=== PATIENT | male | born 1940 | race Caucasian/White ===

== ENCOUNTER 2019-12-16 09:01 | Inpatient (IN) | payer OTHER ==
[~2019-12-16] VITALS: Ht 175.3 cm; Wt 77.1 kg
[2019-12-16 09:05] VITALS: BP 112/94
[2019-12-16 09:23] LABS: ABSOLUTE LYMPHOCYTES 0.3 thou/uL (0.8-5.3); ABSOLUTE MONOCYTES 0.4 thou/uL (0.0-1.2); ABSOLUTE NEUTROPHILS 3.5 thou/uL (1.6-8.1); BASOPHILS 0.4 %; EOSINOPHILS 0.1 %; HEMATOCRIT 33.2 % (42.0-52.0); LYMPHOCYTES 7.7 %; MCH 28.2 pg (26.0-34.0); MCHC 33.2 g/dL (28.0-37.0); MCV 84.8 fL (80.0-100.0); MONOCYTES 9.2 %; MPV 7.9 fl. (7.2-11.1); NUCLEATED RBCS 0 /100WBC; PLATELET COUNT* 170 thou/uL (150-400); POLYS 82.6 %; RBC 3.92 mil/uL (4.50-6.00); RDW-CV 15.3 % (10.5-14.5); WBC 4.3 thou/uL (4.0-11.0)
[2019-12-16] MEDS ORDERED: FAMOTIDINE 20 M20 MG PO (09:34)
[2019-12-16] MEDS ORDERED: DILTIAZEM ER240 MG PO (09:34)
[2019-12-16 09:35] LABS: CREATININE 2.6 mg/dL (0.6-1.3); POTASSIUM 3.9 mmol/L (3.5-5.1)
[2019-12-16] MEDS ORDERED: MILK OF MA400 MG/5 M PO (09:35)
[2019-12-16] MEDS ORDERED: JANUVIA100 MG PO (09:35)
[2019-12-16] MEDS ORDERED: ROSUVASTATIN CA20 MG PO (09:35)
[2019-12-16] MEDS ORDERED: TOPROL XL50 MG PO (09:35)
[2019-12-16] MEDS ORDERED: FLOMAX0.4 MG PO (09:35)
[2019-12-16] MEDS ORDERED: XARELTO15 MG PO (09:36)
[2019-12-16] MEDS ORDERED: TYLENOL325 MG PO (09:36)
[2019-12-16] MEDS ORDERED: TRAMADOL 50 MG50 MG PO (09:36)
[2019-12-16 09:48] LABS: ALBUMIN 2.9 g/dL (3.4-5.0); CK-MB MASS 1.1 ng/mL (<0.5-3.6); TOTAL BILIRUBIN 0.6 mg/dL (<0.1-1.0); TOTAL PROTEIN 7.2 g/dL (6.4-8.2)
[2019-12-16 10:02] LABS: URINE BILIRUBIN NEGATIVE (Negative); URINE BLOOD 2+ (Negative); URINE CLARITY CLEAR; URINE COLOR YELLOW; URINE GLUCOSE-RANDOM NEGATIVE (Negative); URINE KETONES TRACE (Negative); URINE LEUKOCYTES-REFLEX NEGATIVE (Negative); URINE NITRITE-REFLEX NEGATIVE (Negative); URINE PROTEIN 1+ (Negative); URINE SPECIFIC GRAVITY 1.025 (1.005-1.030); URINE UROBILINOGEN 0.2 E.U./dl (0.2-1.0)
[2019-12-16 10:23] LABS: BACTERIA-REFLEX 1-9 Few /HPF (None Seen); CRYSTALS None Seen /LPF (None Seen); FINE GRANULAR CASTS 0-3 Few /LPF (None Seen); MUCUS 0-3 Light strn/LPF (None Seen); SQUAMOUS 0-3 Few /LPF (0-3); URINE RBC 3-10 Few /HPF (0-2); URINE WBC-REFLEX 0-5 Rare /HPF (0-5)
[2019-12-16 10:55] LABS: APTT 27.4 Seconds (25.0-31.3); INR 1.2; PROTIME 12.3 Seconds (9.20-11.50)
[2019-12-16 14:30] VITALS: BP 140/56
[2019-12-16 14:49] VITALS: BP 144/50
[2019-12-16 16:40] VITALS: BP 150/77
[2019-12-16 20:00] VITALS: BP 142/98
[2019-12-16 23:59] VITALS: BP 143/83
[2019-12-17 04:00] VITALS: BP 142/80
[2019-12-17 07:30] VITALS: BP 127/71
[2019-12-17 09:48] LABS: HEMATOCRIT 32.7 % (42.0-52.0); HEMOGLOBIN 10.5 gm/dL (14.0-18.0); MCHC 32.2 g/dL (28.0-37.0); MCV 86.8 fL (80.0-100.0); MPV 8.5 fl. (7.2-11.1); RBC 3.76 mil/uL (4.50-6.00); RDW-CV 16.1 % (10.5-14.5); WBC 2.4 thou/uL (4.0-11.0)
[2019-12-17 10:00] LABS: CALCIUM 8.2 mg/dL (8.5-10.1); CREATININE 2.1 mg/dL (0.6-1.3); POTASSIUM 4.2 mmol/L (3.5-5.1)
--- NOTE | 2019-12-17 10:56 | EKG ---
[place] [address] ELECTROCARDIOGRAM REPORT Name: CORTESDASHA Yaa Room: [address] ADM IN [facility].#: [id number] Admission: 12/16/19 Attend Phys: Noe Bull Discharge: Date of : 38 Date of Service: 12/16/19908 Report #: [id number] THIS REPORT FOR: //name// [facility] ED Test Date: 2019-12-16 Test Time: 09:09:45 Pat Name: DASHA CORTES Department: Room: [facility] Gender: M Assistant Property Manager: CCD : 1940 Requested By: Ranjit Rosario Order Number: [id number] MD: Jesse Wade Measurements Intervals [place] Rate: 124 P: [place]: QRS: 55 QRSD: 139 T: -68 QT: 341 QTc: 490 Interpretive Statements Atrial fibrillation Right bundle branch block Inferior infarct, age indeterminate Repol abnrm suggests ischemia, diffuse leads No previous ECG available for comparison Electronically Signed On 12-17-2019 10:56:28 ICU MANAGER by Jesse Wade [email or web address] <ELECTRONICALLY SIGNED> By: Jesse Wade MD, [facility] 12/17/19 1056 0909 Jesse Wade MD, [facility] /EPI
[2019-12-17 13:30] VITALS: BP 121/67
--- NOTE | 2019-12-17 15:41 | 2DMMODE ---
[place] [address] 2 D/M-MODE ECHOCARDIOGRAM Name: DASHA CORTES Room: [address] IN .R.#: [id number] Admission: 12/16/19 Attend Phys: Noe Bull Discharge: Date of : 38 Date of Service: 12/17/19 1541 Report #: [id number] THIS REPORT FOR: cc: Reilly Edwards MD, Srinath MD Blick,Jesse Ibarra MD [facility] ~ APPROVED REPORT Study performed: 12/17/2019 14:24:32 EXAM: Comprehensive 2D, Doppler, and color-flow Echocardiogram Patient Location: Bedside BSA: 1.93 HR: 113 bpm BP: 127/71 mmHg Other Information Study Quality: Technically Limited Technically limited study due to uncooperative patient, inability to position patient. Indications Atrial Fibrillation Pacemaker Covid Positive 2D Dimensions IVSd: 18.00 (7-11mm) LVOT Diam: 19.97 (18-24mm) LVDd: 38.14 mm PWd: 7.35 (7-11mm) Ascending Ao: 37.18 (22-36mm) LVDs: 30.47 (25-40mm) Aortic Root: 31.37 mm Volumes Left Atrial Volume (Systole) LA ESV Index: 42.10 mL/m2 Aortic Valve AoV Peak Riley.: 1.52 m/s AO Peak Gr.: 9.29 mmHg LVOT Max P.70 mmHg AO Mean Gr.: 5.63 mmHg LVOT Mean P.07 mmHg LVOT Max V: 0.82 m/s AO V2 VTI: 28.80 cm LVOT Mean V: 0.46 m/[place] [address] 2 D/M-MODE ECHOCARDIOGRAM Name: DASHA CORTES Room: [address] IN .R.#: [id number] Admission: 12/16/19 Attend Phys: Noe Bull Discharge: Date of : 38 Date of Service: 12/17/19 1541 Report #: [id number] KEN (VTI): 1.99 cm2 LVOT V1 VTI: 18.30 cm Mitral Valve E/A Ratio: 3.30 MV Decel. Time: 178.19 ms MV E Max Riley.: 0.75 m/s MV PHT: 51.67 ms MVA (PHT): 4.26 cm2 Pulmonary Valve PV Peak Riley.: 0.78 m/s PV Peak Gr.: 2.40 mmHg Tricuspid Valve RAP Estimate: 5.00 mmHg TR Peak Gr.: 23.43 mmHg RVSP: 28.43 mmHg PA Pressure: 28.43 mmHg Left Ventricle The left ventricle is normal size. There is normal LV segmental wall motion. There is normal left ventricular wall thickness. Left ventricular systolic function is normal. The left ventricular ejection fraction is within the normal range. LVEF is 50-55%. Right Ventricle Right ventricle is dilated. Right ventricle is mildly hypokinetic. Pacemaker lead is present in the right ventricle. Atria Left atrium is mildly dilated. Interatrial septum not well visualized. Right atrium is dilated. Aortic Valve The Aortic valve is sclerotic. Trace aortic regurgitation. There is no aortic valvular stenosis. Mitral Valve The mitral valve is normal in structure. Mild mitral regurgitation. No evidence of mitral valve stenosis. Tricuspid Valve The tricuspid valve is normal in structure. Severe tricuspid regurgitation. estimated pa pressure 30 mm Hg Pulmonic Valve Pulmonic valve is not well visualized. There is no pulmonic [place] [address] 2 D/M-MODE ECHOCARDIOGRAM Name: DASHA CORTES Room: [address] IN [facility]#: [id number] Admission: 12/16/19 Attend Phys: Noe Bull Discharge: Date of : 38 Date of Service: 12/17/19 1541 Report #: [id number] Great Vessels The aortic root is normal in size. Aortic arch is notl visualized. IVC is not visualized. Pericardium There is no pericardial effusion. <Conclusion> LVEF is 50-55%. Right ventricle is dilated. Left atrium is mildly dilated. Right atrium is dilated. The Aortic valve is sclerotic. Mild mitral regurgitation. Severe tricuspid regurgitation. estimated pa pressure 30 mm Hg <ELECTRONICALLY SIGNED> By: Jesse Wade MD, FACC 12/17/19 1541 1541 1541 Jesse Wade MD, FACC /INF
--- NOTE | 2019-12-17 17:20 | EKG ---
[place] [address] ELECTROCARDIOGRAM REPORT Name: SOPHIADASHA Yaa Room: [address] ADM [place] .R.#: [id number] Admission: 12/16/19 Attend Phys: Noe Bull Discharge: Date of : 38 Date of Service: 12/16/192140 Report #: [id number] THIS REPORT FOR: //name// [facility] Test Date: 2019-12-16 Test Time: 21:41:23 Pat Name: DASHA CORTES Department: Room: [address] Gender: M Nurse Instructor: BXIONG : 1940 Requested By: Noe Bull Order Number: [id number] Gail MD: Jesse Wade Measurements Intervals [place] Rate: 126 P: [place]: QRS: 73 QRSD: 129 T: -54 QT: 344 QTc: 499 Interpretive Statements Atrial fibrillation Ventricular premature complex Right bundle branch block Repol abnrm suggests ischemia, diffuse leads Compared to ECG 12/16/2019 09:09:45 Ventricular premature complex(es) now present Possible ischemia still present Electronically Signed On 12-17-2019 17:20:16 SENIOR NET DEVELOPER ARCHITECT by Jesse Wade [email or web address] <ELECTRONICALLY SIGNED> By: Jsese Wade MD, FACC 12/17/19 1720 40 40 Jesse Wade MD, FAC /EPI
--- NOTE | 2019-12-17 17:28 | CON ---
[address] [address] CONSULTATION Name: DASHA CORTES Room: [address] IN M.R.#: [id number] Admission: 12/16/19 Attend Phys: Raeann Cota Discharge: Date of : 38 Report #: [id number] THIS REPORT FOR: //name// cc: Reilly Edwards MD, Srinath MD ~ DATE OF SERVICE: 12/17/2019 CARDIOLOGY CONSULTATION HISTORY OF PRESENT ILLNESS: The patient is an 79-year-old white male who I was asked to see in the hospital today after he was noted to be in atrial fibrillation. The history was obtained from the current records. There are no family members available. The patient is very confused at this time. [facility] was [facility] yesterday after he was noted to be weak and had a fever. He denies any chest pain, shortness of breath. He had fallen a couple of weeks ago. He was found to be in atrial fibrillation. Cardiology consultation was requested. PAST MEDICAL HISTORY: Cannot be obtained at this time. SOCIAL HISTORY: There is no social history available. MEDICATIONS: At the [facility] include Cardizem, Neurontin, Januvia, metoprolol, Crestor, Xarelto. REVIEW OF SYSTEMS: He does have a history of permanent atrial fibrillation. He apparently has a pacemaker, hyperlipidemia, diabetes and chronic kidney disease. LABORATORY DATA: His workup in the Emergency Room yesterday, he had a chest x-ray, which showed cardiomegaly, evidence of a pacemaker, left lower lobe infiltrate. He had a CT scan of the head that showed no acute abnormality. His lab work, sodium 142, BUN 28, creatinine 2.1, albumin 2.9. Troponin 0.06. BNP 4645. White blood cell count 2.4, hematocrit 32.7. IMPRESSION AND RECOMMENDATIONS: 1. Dementia. 2. Permanent atrial fibrillation. Rate controlled with calcium kylee. The patient has been anticoagulated. 3. History of falls. 4. Chronic kidney disease. 5. Anemia[place] [id number] CONSULTATION Name: CORTESDASHA Yaa Room: [address] IN [facility]#: [id number] Admission: 12/16/19 Attend Phys: Raeann Cota Discharge: Date of : 38 Report #: [id number] 6. COVID-19. Stat test yesterday was positive. The patient is a no code blue status. <ELECTRONICALLY SIGNED> By: Jesse Wade MD, [facility] 12/17/19 1728 1307 [id number] Wade MD, FACC /nt
[2019-12-17 17:35] VITALS: BP 137/80
[2019-12-17 20:24] VITALS: BP 130/82
[2019-12-18] VITALS: BP 129/77
[2019-12-18 04:00] VITALS: BP 134/87
[2019-12-18 07:55] VITALS: BP 153/99
[2019-12-18 16:00] VITALS: BP 148/84
[2019-12-18 16:03] LABS: HEMATOCRIT 32.4 % (42.0-52.0); HEMOGLOBIN 10.6 gm/dL (14.0-18.0); MCH 28.2 pg (26.0-34.0); MCHC 32.9 g/dL (28.0-37.0); MCV 85.8 fL (80.0-100.0); MPV 9.1 fl. (7.2-11.1); RBC 3.77 mil/uL (4.50-6.00); RDW-CV 15.8 % (10.5-14.5); WBC 6.5 thou/uL (4.0-11.0)
[2019-12-18 16:26] LABS: ALBUMIN 2.8 g/dL (3.4-5.0); CALCIUM 8.1 mg/dL (8.5-10.1); CREATININE 2.3 mg/dL (0.6-1.3); MAGNESIUM 1.8 mg/dL (1.8-2.4); POTASSIUM 3.7 mmol/L (3.5-5.1); TOTAL BILIRUBIN 0.4 mg/dL (<0.1-1.0); TOTAL PROTEIN 6.2 g/dL (6.4-8.2)
[2019-12-18 23:00] VITALS: BP 146/56
[2019-12-19 05:47] LABS: HEMATOCRIT 30.5 % (42.0-52.0); MCH 28.2 pg (26.0-34.0); MCHC 32.7 g/dL (28.0-37.0); MCV 86.1 fL (80.0-100.0); MPV 9.3 fl. (7.2-11.1); RBC 3.55 mil/uL (4.50-6.00); RDW-CV 15.8 % (10.5-14.5); WBC 5.4 thou/uL (4.0-11.0)
[2019-12-19 07:30] VITALS: BP 145/100
[2019-12-19 07:57] LABS: CREATININE 2.2 mg/dL (0.6-1.3); MAGNESIUM 1.8 mg/dL (1.8-2.4); POTASSIUM 3.9 mmol/L (3.5-5.1)
[2019-12-19 08:15] LABS: CALCIUM 8.3 mg/dL (8.5-10.1)
--- NOTE | 2019-12-19 09:43 | CON ---
[address] [address] CONSULTATION Name: DASHA CORTES Yaa Room: [address] IN M.R.#: [id number] Admission: 12/16/19 Attend Phys: Raeann Cota Discharge: Date of : 38 Report #: [id number] THIS REPORT FOR: //name// cc: Reilly Edwards MD, Srinath MD ~ DATE OF SERVICE: 12/17/2019 REQUESTING PHYSICIAN: Dr. Kim. REASON FOR CONSULTATION: Acute kidney injury. HISTORY OF PRESENT ILLNESS: The patient is an 79-year-old gentleman, with medical history significant for dementia, chronic kidney disease stage 3, chronic atrial fibrillation and diabetes, presents with hypoxia. He was diagnosed with COVID this week. He is a resident of [facility]. The patient himself is apparently not able to provide any history. On admission, his chest x-ray looked fine. His creatinine was 2.6, but now it is down to 2.1 and this is his baseline. He does have chronic kidney disease stage 3. PHYSICAL EXAMINATION: Not done by me due to COVID infection and the need for minimizing exposure to COVID infection. So my exam and my assessment are based on physical exam that was done by Dr. Kim and Dr. Rosario. LABORATORY DATA: Today, his creatinine is down to 2.1. Serum sodium 142, potassium 4.2. His urinalysis showed some bacteria. ASSESSMENT: 1. Acute kidney injury due to infection. He does have most likely urinary tract infection and he does have COVID infection. His renal functions are improving with IV fluids and with antibiotics. 2. COVID infection. 3. Dementia. 4. Chronic kidney disease stage 3. PLAN: From my standpoint, he is improving. His renal function is back to his baseline. I would continue with gentle hydration and treatment for COVID as you are doing. Discussed with the patient's nurse. I will sign off. <ELECTRONICALLY SIGNED> By: Collins Lott MD 12/19/19 0943 1150 [id number] Lott MD /[facility]
[2019-12-19 16:00] VITALS: BP 133/76
[2019-12-19 20:00] VITALS: BP 146/94
[2019-12-20 07:09] LABS: ALBUMIN 2.6 g/dL (3.4-5.0); CALCIUM 8.4 mg/dL (8.5-10.1); CREATININE 2.2 mg/dL (0.6-1.3); MAGNESIUM 1.9 mg/dL (1.8-2.4); POTASSIUM 3.8 mmol/L (3.5-5.1); TOTAL BILIRUBIN 0.5 mg/dL (<0.1-1.0); TOTAL PROTEIN 6.2 g/dL (6.4-8.2)
[2019-12-20 10:27] LABS: HEMATOCRIT 35.2 % (42.0-52.0); HEMOGLOBIN 11.5 gm/dL (14.0-18.0); MCH 27.9 pg (26.0-34.0); MCHC 32.6 g/dL (28.0-37.0); MCV 85.6 fL (80.0-100.0); RBC 4.11 mil/uL (4.50-6.00); RDW-CV 15.9 % (10.5-14.5)
[2019-12-20 12:39] VITALS: BP 147/80
[2019-12-20 16:48] VITALS: BP 174/99
[2019-12-20 19:30] VITALS: BP 139/87
[2019-12-21 01:00] VITALS: BP 133/92
[2019-12-21 09:03] LABS: HEMATOCRIT 33.9 % (42.0-52.0); HEMOGLOBIN 10.9 gm/dL (14.0-18.0); MCH 27.5 pg (26.0-34.0); MCHC 32.1 g/dL (28.0-37.0); MCV 85.5 fL (80.0-100.0); MPV 8.3 fl. (7.2-11.1); NUCLEATED RBCS 1 /100WBC; PLATELET COUNT* 90 thou/uL (150-400); RBC 3.96 mil/uL (4.50-6.00); RDW-CV 16.1 % (10.5-14.5); WBC 6.3 thou/uL (4.0-11.0)
[2019-12-21 09:15] LABS: ALBUMIN 2.7 g/dL (3.4-5.0); CALCIUM 8.6 mg/dL (8.5-10.1); CREATININE 1.9 mg/dL (0.6-1.3); POTASSIUM 3.4 mmol/L (3.5-5.1); TOTAL BILIRUBIN 0.7 mg/dL (<0.1-1.0); TOTAL PROTEIN 6.1 g/dL (6.4-8.2)
[2019-12-21 09:22] LABS: PREALBUMIN 17.2 mg/dL (18.0-35.7)
[2019-12-21 10:12] LABS: ABSOLUTE LYMPHOCYTES 0.4 thou/uL (0.8-5.3); ABSOLUTE MONOCYTES 0.1 thou/uL (0.0-1.2); ABSOLUTE NEUTROPHILS 5.8 thou/uL (1.6-8.1); MYELOCYTES 1 %; PLATELET ESTIMATE DECREASED
[2019-12-21 12:56] VITALS: BP 155/82
[2019-12-21 15:55] VITALS: BP 135/99
[2019-12-21 22:20] VITALS: BP 145/66
[2019-12-22 00:45] VITALS: BP 163/83
[2019-12-22 04:32] VITALS: BP 155/99
[2019-12-22 05:39] LABS: ABSOLUTE LYMPHOCYTES 0.5 thou/uL (0.8-5.3); ABSOLUTE MONOCYTES 0.6 thou/uL (0.0-1.2); ABSOLUTE NEUTROPHILS 6.6 thou/uL (1.6-8.1); BASOPHILS 0.2 %; HEMATOCRIT 35.7 % (42.0-52.0); HEMOGLOBIN 11.7 gm/dL (14.0-18.0); LYMPHOCYTES 6.4 %; MCH 27.2 pg (26.0-34.0); MCHC 32.8 g/dL (28.0-37.0); MCV 82.9 fL (80.0-100.0); MONOCYTES 7.5 %; MPV 8.3 fl. (7.2-11.1); NUCLEATED RBCS 0 /100WBC; PLATELET COUNT* 122 thou/uL (150-400); POLYS 85.9 %; RDW-CV 15.7 % (10.5-14.5); WBC 7.7 thou/uL (4.0-11.0)
[2019-12-22 05:52] LABS: ALBUMIN 2.8 g/dL (3.4-5.0); CALCIUM 8.2 mg/dL (8.5-10.1); CREATININE 1.9 mg/dL (0.6-1.3); POTASSIUM 3.3 mmol/L (3.5-5.1); TOTAL BILIRUBIN 0.9 mg/dL (<0.1-1.0)
[2019-12-22 06:05] LABS: PREALBUMIN 19.3 mg/dL (18.0-35.7)
[2019-12-22 07:40] VITALS: BP 172/88
[2019-12-22 11:49] VITALS: BP 161/96
[2019-12-22 16:12] VITALS: BP 152/93
[2019-12-22 19:45] VITALS: BP 150/80
[2019-12-23 04:06] VITALS: BP 159/89
[2019-12-23 05:03] LABS: ABSOLUTE LYMPHOCYTES 0.6 thou/uL (0.8-5.3); ABSOLUTE MONOCYTES 0.5 thou/uL (0.0-1.2); ABSOLUTE NEUTROPHILS 5.9 thou/uL (1.6-8.1); BASOPHILS 0.1 %; HEMATOCRIT 33.1 % (42.0-52.0); HEMOGLOBIN 10.9 gm/dL (14.0-18.0); LYMPHOCYTES 8.1 %; MCH 27.7 pg (26.0-34.0); MCV 83.8 fL (80.0-100.0); MONOCYTES 6.8 %; NUCLEATED RBCS 0 /100WBC; PLATELET COUNT* 124 thou/uL (150-400); RBC 3.95 mil/uL (4.50-6.00); WBC 6.9 thou/uL (4.0-11.0)
[2019-12-23 05:32] LABS: CALCIUM 8.4 mg/dL (8.5-10.1); CREATININE 1.7 mg/dL (0.6-1.3)
[2019-12-23 05:36] LABS: POTASSIUM 2.8 mmol/L (3.5-5.1)
[2019-12-23 08:15] VITALS: BP 164/86
[2019-12-23 16:00] VITALS: BP 113/66
[2019-12-23 20:00] VITALS: BP 124/76
[2019-12-23 23:19] VITALS: BP 151/89
[2019-12-24 04:00] VITALS: BP 112/66
[2019-12-24 05:33] LABS: ABSOLUTE LYMPHOCYTES 1.1 thou/uL (0.8-5.3); ABSOLUTE MONOCYTES 0.7 thou/uL (0.0-1.2); BASOPHILS 0.1 %; EOSINOPHILS 0.4 %; HEMATOCRIT 35.6 % (42.0-52.0); HEMOGLOBIN 11.9 gm/dL (14.0-18.0); LYMPHOCYTES 12.4 %; MCH 27.8 pg (26.0-34.0); MCHC 33.5 g/dL (28.0-37.0); MONOCYTES 7.6 %; MPV 8.3 fl. (7.2-11.1); NUCLEATED RBCS 0 /100WBC; PLATELET COUNT* 134 thou/uL (150-400); POLYS 79.5 %; RBC 4.29 mil/uL (4.50-6.00); RDW-CV 16.2 % (10.5-14.5); WBC 8.8 thou/uL (4.0-11.0)
[2019-12-24 05:49] LABS: ALBUMIN 2.8 g/dL (3.4-5.0); CALCIUM 8.3 mg/dL (8.5-10.1); CREATININE 1.9 mg/dL (0.6-1.3); POTASSIUM 3.4 mmol/L (3.5-5.1); TOTAL BILIRUBIN 0.9 mg/dL (<0.1-1.0); TOTAL PROTEIN 6.1 g/dL (6.4-8.2)
[2019-12-24 08:00] VITALS: BP 140/74
[2019-12-24 18:16] VITALS: BP 135/87
[2019-12-24 20:00] VITALS: BP 131/84
[2019-12-25 04:00] VITALS: BP 113/77
[2019-12-25 05:29] LABS: ABSOLUTE EOSINOPHILS 0.1 thou/uL (0.0-0.7); ABSOLUTE LYMPHOCYTES 0.9 thou/uL (0.8-5.3); ABSOLUTE MONOCYTES 0.5 thou/uL (0.0-1.2); ABSOLUTE NEUTROPHILS 6.9 thou/uL (1.6-8.1); BASOPHILS 0.2 %; EOSINOPHILS 1.1 %; HEMATOCRIT 31.1 % (42.0-52.0); HEMOGLOBIN 10.6 gm/dL (14.0-18.0); LYMPHOCYTES 10.4 %; MCV 82.3 fL (80.0-100.0); MONOCYTES 6.4 %; MPV 8.1 fl. (7.2-11.1); NUCLEATED RBCS 0 /100WBC; PLATELET COUNT* 121 thou/uL (150-400); POLYS 81.9 %; RBC 3.78 mil/uL (4.50-6.00); WBC 8.4 thou/uL (4.0-11.0)
[2019-12-25 05:46] LABS: CALCIUM 7.9 mg/dL (8.5-10.1); CREATININE 1.7 mg/dL (0.6-1.3); POTASSIUM 3.4 mmol/L (3.5-5.1)
[2019-12-25 08:00] VITALS: BP 134/68
[2019-12-25 16:00] VITALS: BP 104/64
[2019-12-25 20:00] VITALS: BP 139/76
[2019-12-26 00:21] VITALS: BP 101/47
[2019-12-26 04:49] VITALS: BP 176/70
[2019-12-26 04:54] VITALS: BP 113/51
[2019-12-26 08:30] VITALS: BP 134/72
[2019-12-26 20:00] VITALS: BP 100/55
[2019-12-26 23:46] VITALS: BP 134/67
[2019-12-27 04:38] VITALS: BP 119/68
[2019-12-27 05:01] LABS: ABSOLUTE EOSINOPHILS 0.1 thou/uL (0.0-0.7); ABSOLUTE LYMPHOCYTES 0.6 thou/uL (0.8-5.3); ABSOLUTE MONOCYTES 0.8 thou/uL (0.0-1.2); ABSOLUTE NEUTROPHILS 6.8 thou/uL (1.6-8.1); BASOPHILS 0.2 %; EOSINOPHILS 0.6 %; HEMATOCRIT 32.9 % (42.0-52.0); HEMOGLOBIN 10.7 gm/dL (14.0-18.0); LYMPHOCYTES 6.8 %; MCH 27.2 pg (26.0-34.0); MCHC 32.5 g/dL (28.0-37.0); MCV 83.7 fL (80.0-100.0); MONOCYTES 9.8 %; MPV 8.6 fl. (7.2-11.1); NUCLEATED RBCS 0 /100WBC; PLATELET COUNT* 163 thou/uL (150-400); POLYS 82.6 %; RBC 3.93 mil/uL (4.50-6.00); RDW-CV 16.3 % (10.5-14.5); WBC 8.2 thou/uL (4.0-11.0)
[2019-12-27 05:34] LABS: CALCIUM 8.3 mg/dL (8.5-10.1); CREATININE 1.9 mg/dL (0.6-1.3); POTASSIUM 3.4 mmol/L (3.5-5.1)
[2019-12-27 08:30] VITALS: BP 141/70
[2019-12-27 20:00] VITALS: BP 135/57
[2019-12-28] VITALS: BP 103/49
[2019-12-28 08:30] VITALS: BP 147/60
[2019-12-28 17:59] LABS: CSF GLUCOSE 94 mg/dl (40-70); CSF PROTEIN 93.5 mg/dl (15-45)
[2019-12-28 18:03] LABS: CSF CLARITY CLEAR; CSF COLOR COLORLESS; CSF RBC 13 /mm3; CSF WBC 1 /mm3 (0-10); VOLUME 5 ml
[2019-12-28 20:30] VITALS: BP 144/65
[2019-12-29 07:27] LABS: CALCIUM 8.9 mg/dL (8.5-10.1); POTASSIUM 3.9 mmol/L (3.5-5.1)
[2019-12-29 08:30] VITALS: BP 133/61
[2019-12-29 10:04] LABS: ABSOLUTE LYMPHOCYTES 0.4 thou/uL (0.8-5.3); ABSOLUTE MONOCYTES 0.8 thou/uL (0.0-1.2); ABSOLUTE NEUTROPHILS 4.8 thou/uL (1.6-8.1); BASOPHILS 0.6 %; EOSINOPHILS 0.3 %; HEMATOCRIT 35.8 % (42.0-52.0); HEMOGLOBIN 11.6 gm/dL (14.0-18.0); MCH 27.4 pg (26.0-34.0); MCHC 32.2 g/dL (28.0-37.0); MCV 85.1 fL (80.0-100.0); MONOCYTES 12.7 %; MPV 8.3 fl. (7.2-11.1); NUCLEATED RBCS 0 /100WBC; PLATELET COUNT* 214 thou/uL (150-400); POLYS 80.4 %; RBC 4.21 mil/uL (4.50-6.00); RDW-CV 17.3 % (10.5-14.5)
[2019-12-29 16:19] VITALS: BP 121/69
[2019-12-30] VITALS: BP 143/76
[2019-12-30 05:33] LABS: HEMATOCRIT 34.1 % (42.0-52.0); HEMOGLOBIN 11.1 gm/dL (14.0-18.0); MCH 27.5 pg (26.0-34.0); MCHC 32.5 g/dL (28.0-37.0); MCV 84.5 fL (80.0-100.0); MPV 8.3 fl. (7.2-11.1); NUCLEATED RBCS 0 /100WBC; PLATELET COUNT* 202 thou/uL (150-400); RBC 4.04 mil/uL (4.50-6.00); RDW-CV 16.9 % (10.5-14.5); WBC 4.9 thou/uL (4.0-11.0)
[2019-12-30 06:03] LABS: ALBUMIN 2.3 g/dL (3.4-5.0); CALCIUM 8.5 mg/dL (8.5-10.1); CREATININE 2.2 mg/dL (0.6-1.3); TOTAL BILIRUBIN 0.5 mg/dL (<0.1-1.0); TOTAL PROTEIN 6.9 g/dL (6.4-8.2)
[2019-12-30 07:19] LABS: ABSOLUTE LYMPHOCYTES 0.2 thou/uL (0.8-5.3); ABSOLUTE MONOCYTES 0.2 thou/uL (0.0-1.2); ABSOLUTE NEUTROPHILS 4.5 thou/uL (1.6-8.1)
[2019-12-30 07:28] LABS: PLATELET ESTIMATE ADEQUATE
[2019-12-30 07:29] LABS: SCHISTOCYTES 1+
[2019-12-30 07:30] LABS: BURR CELLS 2+
[2019-12-30 07:31] LABS: MICROCYTES 1+
[2019-12-30 08:00] VITALS: BP 137/91
[2019-12-30 16:15] VITALS: BP 131/87
[2019-12-31] VITALS: BP 136/85
[2019-12-31 05:32] LABS: ABSOLUTE LYMPHOCYTES 0.4 thou/uL (0.8-5.3); ABSOLUTE MONOCYTES 0.5 thou/uL (0.0-1.2); ABSOLUTE NEUTROPHILS 9.6 thou/uL (1.6-8.1); BASOPHILS 0.2 %; HEMATOCRIT 36.8 % (42.0-52.0); HEMOGLOBIN 11.9 gm/dL (14.0-18.0); LYMPHOCYTES 4.2 %; MCH 27.1 pg (26.0-34.0); MCHC 32.3 g/dL (28.0-37.0); MCV 83.9 fL (80.0-100.0); MONOCYTES 4.3 %; MPV 8.5 fl. (7.2-11.1); NUCLEATED RBCS 0 /100WBC; PLATELET COUNT* 236 thou/uL (150-400); POLYS 91.3 %; RBC 4.38 mil/uL (4.50-6.00); RDW-CV 16.7 % (10.5-14.5); WBC 10.5 thou/uL (4.0-11.0)
[2019-12-31 05:51] LABS: ALBUMIN 2.6 g/dL (3.4-5.0); CALCIUM 9.2 mg/dL (8.5-10.1); CREATININE 2.3 mg/dL (0.6-1.3); TOTAL BILIRUBIN 0.3 mg/dL (<0.1-1.0); TOTAL PROTEIN 7.7 g/dL (6.4-8.2)
[2019-12-31 05:56] LABS: POTASSIUM 3.8 mmol/L (3.5-5.1)
[2019-12-31 06:13] LABS: URINE BILIRUBIN NEGATIVE (Negative); URINE BLOOD 1+ (Negative); URINE CLARITY CLEAR; URINE COLOR YELLOW; URINE GLUCOSE-RANDOM TRACE (Negative); URINE KETONES TRACE (Negative); URINE LEUKOCYTES NEGATIVE (Negative); URINE NITRITE NEGATIVE (Negative); URINE PROTEIN 1+ (Negative); URINE SPECIFIC GRAVITY >= 1.030 (1.005-1.030); URINE UROBILINOGEN 0.2 E.U./dl (0.2-1.0)
[2019-12-31 06:51] LABS: AMORPHOUS URATES Moderate /LPF (None Seen); BACTERIA 1-9 Few /HPF (None Seen); CASTS None Seen /LPF (None Seen); MUCUS 0-3 Light strn/LPF (None Seen); SQUAMOUS NONE SEEN /LPF (0-3); URIC ACID CRYSTALS >10 Many /LPF (None Seen); URINE RBC 3-10 Few /HPF (0-2); URINE WBC 0-5 Rare /HPF (0-5)
[2019-12-31 08:00] VITALS: BP 133/66
[2019-12-31 16:00] VITALS: BP 121/74
[2019-12-31 22:17] VITALS: BP 117/61
[2020-01-01] VITALS: BP 119/71
[2020-01-01 08:18] VITALS: BP 111/62
[2020-01-01 10:54] LABS: ABSOLUTE LYMPHOCYTES 0.4 thou/uL (0.8-5.3); ABSOLUTE MONOCYTES 0.3 thou/uL (0.0-1.2); ABSOLUTE NEUTROPHILS 11.5 thou/uL (1.6-8.1); BASOPHILS 0.1 %; HEMATOCRIT 31.2 % (42.0-52.0); HEMOGLOBIN 10.1 gm/dL (14.0-18.0); LYMPHOCYTES 3.2 %; MCH 27.5 pg (26.0-34.0); MCHC 32.3 g/dL (28.0-37.0); MCV 85.2 fL (80.0-100.0); MONOCYTES 2.8 %; MPV 8.6 fl. (7.2-11.1); NUCLEATED RBCS 0 /100WBC; PLATELET COUNT* 171 thou/uL (150-400); POLYS 93.9 %; RBC 3.66 mil/uL (4.50-6.00); RDW-CV 16.7 % (10.5-14.5); WBC 12.2 thou/uL (4.0-11.0)
[2020-01-01 11:47] LABS: ALBUMIN 2.2 g/dL (3.4-5.0); CALCIUM 8.3 mg/dL (8.5-10.1); CREATININE 2.3 mg/dL (0.6-1.3); POTASSIUM 4.2 mmol/L (3.5-5.1); TOTAL BILIRUBIN 0.2 mg/dL (<0.1-1.0); TOTAL PROTEIN 6.2 g/dL (6.4-8.2)
[2020-01-01 14:58] VITALS: BP 111/72
[2020-01-01 19:19] VITALS: BP 116/72
[2020-01-01 20:00] VITALS: BP 128/92
[2020-01-02 01:05] VITALS: BP 112/64
[2020-01-02 04:45] LABS: ABSOLUTE LYMPHOCYTES 0.4 thou/uL (0.8-5.3); ABSOLUTE MONOCYTES 0.3 thou/uL (0.0-1.2); ABSOLUTE NEUTROPHILS 8.6 thou/uL (1.6-8.1); BASOPHILS 0.1 %; HEMATOCRIT 30.4 % (42.0-52.0); HEMOGLOBIN 9.9 gm/dL (14.0-18.0); LYMPHOCYTES 3.8 %; MCH 27.1 pg (26.0-34.0); MCHC 32.5 g/dL (28.0-37.0); MCV 83.5 fL (80.0-100.0); MONOCYTES 3.5 %; MPV 8.6 fl. (7.2-11.1); NUCLEATED RBCS 0 /100WBC; PLATELET COUNT* 173 thou/uL (150-400); POLYS 92.6 %; RBC 3.64 mil/uL (4.50-6.00); RDW-CV 16.6 % (10.5-14.5); WBC 9.2 thou/uL (4.0-11.0)
[2020-01-02 04:51] LABS: CALCIUM 8.3 mg/dL (8.5-10.1); CREATININE 1.9 mg/dL (0.6-1.3)
[2020-01-02 07:58] VITALS: BP 119/63
[2020-01-02 16:00] VITALS: BP 123/54
[2020-01-02 20:30] VITALS: BP 133/81
[2020-01-03 00:24] VITALS: BP 116/60
[2020-01-03 04:55] LABS: HEMATOCRIT 29.3 % (42.0-52.0); HEMOGLOBIN 9.7 gm/dL (14.0-18.0); MCH 27.3 pg (26.0-34.0); MCV 82.8 fL (80.0-100.0); MPV 8.4 fl. (7.2-11.1); NUCLEATED RBCS 0 /100WBC; PLATELET COUNT* 158 thou/uL (150-400); RBC 3.54 mil/uL (4.50-6.00); RDW-CV 16.6 % (10.5-14.5); WBC 7.4 thou/uL (4.0-11.0)
[2020-01-03 05:22] LABS: POTASSIUM 4.3 mmol/L (3.5-5.1)
[2020-01-03 05:46] LABS: CALCIUM 8.5 mg/dL (8.5-10.1); CREATININE 2.1 mg/dL (0.6-1.3)
[2020-01-03 05:55] LABS: ABSOLUTE LYMPHOCYTES 0.4 thou/uL (0.8-5.3); ABSOLUTE MONOCYTES 0.1 thou/uL (0.0-1.2); PLATELET ESTIMATE ADEQUATE
[2020-01-03 05:56] LABS: ANISOCYTOSIS 1+; POIKILOCYTOSIS 1+
[2020-01-03 08:20] VITALS: BP 138/78
[2020-01-03 08:52] VITALS: BP 138/78
[2020-01-03] MEDS ORDERED: NEXIUM40 MG PO (09:44)
[2020-01-03] MEDS ORDERED: HUMALOG100 UNIT/1 SUBQ (09:44)
[2020-01-03] MEDS ORDERED: DEXAMETHASONE1 MG PO (11:19)
== END 2020-01-03 15:10 | DRG 177 ==
LOC: M.ERS 09:01 → M.ORTHSURG 10:29 → M.TBA-ER 10:29 → M.ORTHSURG 15:32
PROVIDERS: Family Medicine; Internal Medicine; Nurse Practitioner; Psychiatry & Neurology Neurology; ADMIT Internal Medicine; ATTEND Internal Medicine
PROC: 009U3ZX Drainage of Spinal Canal, Percutaneous Approach, Diagnostic (ICD-10-PCS; principal; 2019-12-28)
PROC: B01B1ZZ Fluoroscopy of Spinal Cord using Low Osmolar Contrast (ICD-10-PCS; principal; 2019-12-28)
DX: U07.1 COVID-19 (principal); J96.01 Acute respiratory failure with hypoxia; N17.0 Acute kidney failure with tubular necrosis; G92 Toxic encephalopathy; I48.21 Permanent atrial fibrillation; F03.90 Unspecified dementia, unspecified severity, without behavioral disturbance, psychotic disturbance, mood disturbance, and anxiety; N18.30 Chronic kidney disease, stage 3 unspecified; K21.9 Gastro-esophageal reflux disease without esophagitis; N40.0 Benign prostatic hyperplasia without lower urinary tract symptoms; E11.22 Type 2 diabetes mellitus with diabetic chronic kidney disease; D64.9 Anemia, unspecified; E78.00 Pure hypercholesterolemia, unspecified; E11.65 Type 2 diabetes mellitus with hyperglycemia; T38.0X5A Adverse effect of glucocorticoids and synthetic analogues, initial encounter; Z79.899 Other long term (current) drug therapy; Z95.0 Presence of cardiac pacemaker; Y92.89 Other specified places as the place of occurrence of the external cause; Z79.84 Long term (current) use of oral hypoglycemic drugs; Z87.891 Personal history of nicotine dependence